=== PATIENT | male | born 1995 | race American Indian/Alaskan Native ===

== ENCOUNTER 2017-11-27 15:04 | Emergency (ER) | payer MEDICAID, OTHER ==
[2017-11-27 15:08] VITALS: BMI 21.7
[2017-11-27 15:10] VITALS: BP 138/92; RESP 16; TEMP 97.9; O2SAT 100
[2017-11-27 15:41] LABS: URINE BACTERIA RARE (<OCC); URINE BILIRUBIN NEGATIVE (NEGATIVE); URINE BLOOD 1+ (NEGATIVE); URINE CLARITY Hazy (Clear); URINE COLOR Yellow (YELLOW); URINE GLUCOSE (UA) NORMAL (Normal); URINE LEUKOCYTE ESTERASE 3+ Leu/uL (Negative); URINE PROTEIN NEGATIVE (NEGATIVE); URINE UROBILINOGEN NORMAL mg/dL (0.2-1.0)
--- NOTE | 2017-11-27 15:46 | C.PDOC ---
History Of Present Illness 18-year-old male, comes in for evaluation of discomfort on urination after having unprotected sex last night. Pt denies fever, chills, sore throat, abd. pain, N/V, blood in urine, penile discharge or lesion, testicular swelling or pain, denies previous hx of STD. No other complaints at this time. Time Seen by Provider: 11/27/17 15:13 Chief Complaint (Nursing): Male Genitourinary History Per: Patient History/Exam Limitations: no limitations Past Medical History Reviewed: Historical Data, Nursing Documentation, Vital Signs Vital Signs: Last Vital Signs Temp 97.9 F 11/27/17 15:08 Pulse 90 11/27/17 15:08 Resp 16 11/27/17 15:08 BP 138/92 H 11/27/17 15:08 Pulse Ox 100 11/27/17 15:08 Family History: States: No Known Family Hx - Social History Hx Tobacco Use: Yes Hx Alcohol Use: No Hx Substance Use: No - Immunization History Hx Influenza Vaccination: No Hx Pneumococcal Vaccination: No Review Of Systems Constitutional: Negative for: Fever Gastrointestinal: Negative for: Nausea, Vomiting, Abdominal Pain Genitourinary: Positive for: Dysuria. Negative for: Hematuria, Penile Discharge, Rash, Penile Pain Musculoskeletal: Negative for: Back Pain Physical Exam - Physical Exam Appears: Well, Non-toxic, No Acute Distress Skin: Warm, Dry, No Rash Head: Normacephalic Eye(s): bilateral: PERRL Nose: No Flaring, No Discharge Oral Mucosa: Moist, No Drooling Tongue: Normal Appearing Lips: Normal Appearing Throat: No Erythema Neck: Normal ROM, Trachea Midline, Supple Chest: Symmetrical Cardiovascular: Rhythm Regular, No Murmur, No JVD Respiratory: No Accessory Muscle Use, No Rales, No Rhonchi, No Stridor, No Wheezing Gastrointestinal/Abdominal: Soft, No Tenderness, No Distention, No Guarding Back: No CVA Tenderness Male Genital: Other (refusing) Extremity: Normal ROM, No Deformity Neurological/Psych: Oriented x3, Normal Speech ED Course And Treatment O2 Sat by Pulse Oximetry: 100 Pulse Ox Interpretation: Normal (RA) Progress Note: On re-eval, pt is afebrile, hemodynamicaly stable. Non-toxic. Tolerate PO well in ED. neck: Supple. ENT: no acute findings. Lungs: CTA B/L, BS equal B/L. Abd: benign. back: (-) CVA tenderness. UA review and c/w UTI. UCx, GC- pending. Pt was empirically tx with Rocephin IM, Zithro. Pt has clinical findings c/w urethritis r/o STD. Pt advised to encourage partner to be screened/tx as well, ref F/U with Clinic in 2-3 days for re-eavl. return if any new changes. Medical Decision Making Medical Decision Making: Plan: * GC/Chlamydia * Urine Culture * UA * Reassess and Disposition Disposition - Disposition Disposition: HOME/ ROUTINE Disposition Time: 16:01 Condition: STABLE Additional Instructions: Take medication as prescribed Encourage partner(s) to be checked and treated as well Practice safe sex Follow up with PMD, Urology in 2-3 days for re-evaluation. return to Ed if any new changes. Prescriptions: Doxycycline Hyclate [Doryx] 100 mg PO BID #14 cap Instructions: Urethritis Forms: [facility] (Serbian) - Clinical Impression Clinical Impression: Urethritis - Scribe Statement The provider has reviewed the documentation as recorded by the Scribe (Daniel Reyna) All medical record entries made by the Scribe were at my direction and personally dictated by me. I have reviewed the chart and agree that the record accurately reflects my personal performance of the history, physical exam, medical decision making, and the department course for this patient. I have also personally directed, reviewed, and agree with the discharge instructions and disposition.
[2017-11-27] MEDS ORDERED: cefTRIAXone (Rocephin) 250 mg Inj IM STA (16:00)
[2017-11-27 16:42] VITALS: PULSE 88
== END 2017-11-27 16:41 | disposition home or self-care (01) ==
LOC: C.ER 15:04
DX: N34.2 Other urethritis (principal)
CPT/HCPCS: 81001; 87086; 87491; 87591; 96372; 99285; J0696